=== PATIENT | male | born 1980 | race Caucasian/White ===

== ENCOUNTER 2017-01-29 15:00 | Emergency (ER) | payer SELFPAY ==
[2017-01-29 15:13] VITALS: BP 120/84
--- NOTE | 2017-01-29 15:22 | UC ---
Skin Complaint HPI - HPI Summary HPI Summary: The patient comes in today for: 1. Rash: Onset: "a couple days" Palliative/provocative: Nothing makes it better or worse except touching. Quality: Burning. Region: Bilateral arms and upper chest. Severity: 0/10 when not toughing. Time: Constant. Associated symptoms: Event: He used a weed richmond earlier the day he developed the rash. He knows that there are yuridia in the area where he was week wacking. He was wearing pants and a tank top shirt. He only has a rash over the anterior arms and upper chest. * - History of Current Complaint Chief Complaint: UCSkin Time Seen by Provider: 01/29/17 15:07 Stated Complaint: RASH ON ARM AND NECK Hx Obtained From: Patient - Allergy/Home Medications Allergies/Adverse Reactions: Allergies Allergy/AdvReac Type Severity Reaction Status Date / Time No Known Allergies Allergy Verified 01/29/17 15:13 Review of Systems Constitutional: Negative Skin: Rash Eyes: Negative ENT: Negative Respiratory: Negative Cardiovascular: Negative Gastrointestinal: Negative Genitourinary: Negative All Other Systems Reviewed And Are Negative: Yes PMH/Surg Hx/FS Hx/Imm Hx Previously Healthy: Yes - Surgical History Surgical History: Yes Surgery Procedure, Year, and Place: 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, 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 Negative: Discharge ENT: Positive: Hearing grossly normal. Negative: Pharyngeal erythema, Nasal congestion, Nasal drainage, TM bulging, TM dull, TM red, Tonsillar swelling, Tonsillar exudate Dental: Negative: Gross Decay/Caries @, Dental Fracture @ Neck: Positive: Supple, Nontender, No Lymphadenopathy. Negative: Nuchal Rigidity Respiratory: Positive: Lungs clear, No respiratory distress, No accessory muscle use. Negative: Rhonchi, Wheezing Cardiovascular: Positive: RRR, No Murmur Abdomen Description: Positive: Nontender, No Organomegaly, Soft. Negative: Distended, Guarding Musculoskeletal: Positive: Strength Intact, ROM Intact, No Edema Neurological: Positive: Alert, Muscle Tone Normal Psychological: Positive: Age Appropriate Behavior, Consolable Skin: Positive: rashes - There are polka dot/scattered pattern of erythematous slightly papular rash with lesions several mm in diameter up the anterior arms and upper chest in an area exposed with a tank top shirt. Nothing on the face or neck or stomach. Course/Dx - Course Course Of Treatment: Patient was told that I think he has a contact dermatitis related to irritating oils from plants (such as poison yari) which were cut and shredded by his weed richmond and splattered on him. - Differential Diagnoses - Skin Complaint Differential Diagnoses: Cellulitis, Contact Dermatitis, Poison Yari - Diagnoses Provider Diagnoses: Contact dermatitis Discharge - Discharge Plan Condition: Stable Disposition: HOME Patient Education Materials: Poison Yari (ED), Contact Dermatitis (ED) Referrals: YOVANY Gaytan [Primary Care Provider] - 1 Week (Please see your primary care provider in about one to two weeks to see how well you are doing. If you get worse, please be seen sooner.)
== END 2017-01-29 16:02 | disposition home or self-care (01) ==
LOC: UCCORT 15:00
DX: L25.9 Unspecified contact dermatitis, unspecified cause (principal); F17.210 Nicotine dependence, cigarettes, uncomplicated
CPT/HCPCS: 99212; G0463

== ENCOUNTER 2018-04-16 17:44 | Emergency (ER) | payer OTHER ==
[2018-04-16 18:03] VITALS: BP 120/82
--- NOTE | 2018-04-16 18:47 | UC ---
Back Pain HPI - HPI Summary HPI Summary: A 37 y/o male presents to [facility] c/o constant back pain around the hip and middle of back. According to the patient, he has been experiencing back pain for the past 3 days when he woke up with a sore back. Because of the pain, he is experiencing abdominal pain and nausea. Additionally he has left leg aching pain. Denies any numbness/weakness, urinary issues, hematuria or bowel issues, but he stated that he feels he got hit in his testicles. Denies any recent back injury. Movement and ambulating aggravates the symptoms. He has history of pulling muscles in his back. FHx of degenerative bone disease (father, diagnosed at his age). 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 SHx of a smoker, no recreation drugs or ETOH. No allergies. No medications. Pt is worried about his kidneys. - History of Current Complaint Chief Complaint: UCBackPain Stated Complaint: LOW BACK PAIN Time Seen by Provider: 04/16/18 18:18 Hx Obtained From: Patient Onset/Duration: Sudden Onset, Lasting Days, Still Present Timing: Constant Severity Initially: Moderate Severity Currently: Moderate Pain Intensity: 5 Pain Scale Used: 0-10 Numeric Back Pain: Is Discrete @ - Hip to middle of back, Radiates To - left leg Character: Aching Aggravating Factor(s): Movement, Bending, Walking Alleviating Factor(s): Nothing Associated Signs And Symptoms: Positive: Abdominal Pain. Negative: Weakness, Numbness - Allergies/Home Medications Allergies/Adverse Reactions: Allergies Allergy/AdvReac Type Severity Reaction Status Date / Time No Known Allergies Allergy Verified 04/16/18 18:03 PMH/Surg Hx/FS Hx/Imm Hx - Additional Past Medical History Additional PMH: Patient has no PMHx. - Surgical History Surgical History: Yes Surgery Procedure, Year, and Place: t/a, blood clot in brain as - Family History Known Family History: Positive: Cardiac Disease, Diabetes - Social History Alcohol Use: Rare Substance Use Type: None Smoking Status (MU): Heavy Every Day Tobacco Smoker Have You Smoked in the Last Year: Yes Review of Systems Constitutional: Negative Skin: Negative Eyes: Negative ENT: Negative Respiratory: Negative Cardiovascular: Negative Gastrointestinal: Abdominal Pain, Nausea Genitourinary: Negative Motor: Negative Neurovascular: Negative Musculoskeletal: Other: - POSITIVE: Back pain radiating to left leg Neurological: Negative Psychological: Negative Is Patient Immunocompromised?: No All Other Systems Reviewed And Are Negative: Yes Physical Exam - Summary Physical Exam Summary: Appearance: Well appearing, no pain distress Skin: warm, dry, reflects adequate perfusion Head/face: normal Eyes: EOMI, DARIEN ENT: normal Neck: supple, non-tender Respiratory: CTA, breath sounds present Cardiovascular: RRR, pulses symmetrical Abdomen: non-tender, soft Bowel Sounds: present Musculoskeletal: strength/ROM intact, no midline tenderness in the back, no CVA tenderness, mild left lumbar muscular tenderness Neuro: normal, sensory motor intact, A&Ox3 Triage Information Reviewed: Yes Vital Signs: Initial Vital Signs Temp 98.3 F 04/16/18 18:01 Pulse 72 04/16/18 18:01 Resp 18 04/16/18 18:01 BP 120/82 04/16/18 18:01 Pulse Ox 96 04/16/18 18:01 Vital Signs Reviewed: Yes Back Pain Course/Dx - Course Course Of Treatment: 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 Urine is negative for blood or infection. Range of motion is unlimited. No evidence for cauda equina or conus medullaris. Discharged on symptom control, stretching etc. Recommended chiropractic. - Differential Dx/Diagnosis Differential Diagnosis/HQI/PQRI: Renal Colic, Strain, Sprain, Other - UTI Provider Diagnoses: LEFT LUMBAR STRAIN Discharge - Sign-Out/Discharge Documenting (check all that apply): Patient Departure - DISCHARGE All imaging exams completed and their final reports reviewed: No Studies - Discharge Plan Condition: Improved Disposition: HOME Prescriptions: Cyclobenzaprine (NF) [Cyclobenzaprine 5 MG (NF)] 5 mg PO TID PRN #12 tab PRN Reason: muscle pain Naproxen [Naproxen 500 mg tab] 500 mg PO BID #12 tablet. Patient Education Materials: Low Back Strain (ED) Referrals: [facility] [Outside] [facility] [Outside] Additional Instructions: Ice, range of motion/stretching exercises and medications for discomfort. Do not work while taking muscle relaxant. Return with numbness/weakness, uncontrolled pain, new symptoms or other concerns. You have been given referral line for primary care doctor and also a clinic that can follow you up within the next 2 days if needed. - Billing Disposition and Condition Condition: IMPROVED Disposition: Home - Attestation Statements Document Initiated by Cj: Yes Documenting Scribe: Sylvester Conklin Provider For Whom Cj is Documenting (Include Credential): Tam Waddell MD Scribe Attestation: Sylvester Benito, scribed for Tam Waddell MD on 04/16/18 at 1951. Scribe Documentation Reviewed: Yes Provider Attestation: The documentation as recorded by the Sylvester salas accurately reflects the service I personally performed and the decisions made by , Tam Waddell MD
== END 2018-04-16 18:53 | disposition home or self-care (01) ==
LOC: UCEAST 17:44
DX: S39.012A Strain of muscle, fascia and tendon of lower back, initial encounter (principal); X58.XXXA Exposure to other specified factors, initial encounter; Y93.9 Activity, unspecified; Y92.9 Unspecified place or not applicable; R10.9 Unspecified abdominal pain; R11.0 Nausea; F17.200 Nicotine dependence, unspecified, uncomplicated
CPT/HCPCS: 81003; 99212; G0463

== ENCOUNTER → 2018-09-05 19:04 | Emergency (ER) | payer OTHER ==
[~2018-09-05 19:04] MED LIST: Iohexol 300* (CONTRAST) 10 ML SDV IV ONE; Ketorolac INJ* 30 MG/ML 1 ML VIAL IV PUSH ONE; NS 0.9% 1000 ML* 1,000 ML IV ONE
[2018-09-05 23:04] LABS: ABS Basophils 0.1 10^3/ul (0-0.2); ABS Eosinophils 0.2 10^3/ul (0-0.6); ABS Lymphocytes 2.3 10^3/ul (1.0-4.8); ABS Monocytes 0.8 10^3/ul (0-0.8); ABS Neutrophils 3.7 10^3/ul (1.5-7.7); ABS Nucleated RBC 0 10^3/ul; Eosinophil % 2.8 %; Hematocrit 47 % (42-52); Hemoglobin 16.1 g/dl (14.0-18.0); Lymphocyte % 32.1 %; Mean Corpuscular HGB Conc 34 g/dl (31-36); Mean Corpuscular Hemoglobin 31 pg (27-31); Mean Corpuscular Volume 90 fL (80-94); Nucleated Red Blood Cells % 0; Platelet Count 182 10^3/ul (150-450); Red Blood Count 5.26 10^6/ul (4.00-5.40); Red Cell Distribution Width 13 % (10.5-15); White Blood Count 7.1 10^3/ul (3.5-10.8)
[2018-09-05 23:21] LABS: Albumin 4.6 g/dL (3.2-5.2); BUN/Creatinine Ratio 21.9 (8-20); C Reactive Protein 2.21 mg/L (<8.01); Calcium 9.4 mg/dL (8.6-10.3); EGFR Non-African American 86.8 (>60); Globulin 2.3 g/dL (2-4); Potassium 3.8 mmol/L (3.5-5.0); Total Bilirubin 0.6 mg/dL (0.2-1.0); Total Protein 6.9 g/dL (6.4-8.9)
--- NOTE | 2018-09-06 01:01 | ED ---
GI/ HPI - HPI Summary HPI Summary: 38-year-old male presents with right lower quadrant pain today. She states that pain doesn't radiate anywhere. he has never had this before. Denies any nausea vomiting diarrhea or constipation. No fevers. He states he was wearing a tool belt when the pain started but it persisted even after he took the tool belt off. He states he's had no appetite. No urinary symptoms. No chest pain or shortness breath. No previous surgeries. 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 Negative: Vomiting, Diarrhea, Nausea All Other Systems Reviewed And Are Negative: Yes Physical Exam Triage Information Reviewed: Yes Vital Signs On Initial Exam: Initial Vitals Temp Pulse Resp BP Pulse Ox 99.1 F 79 16 159/93 96 09/05/18 19:22 09/05/18 19:22 09/05/18 19:22 09/05/18 19:22 09/05/18 19:22 Vital Signs Reviewed: Yes Appearance: Positive: Well-Appearing Skin: Positive: Warm, Dry Head/Face: Positive: Normal Head/Face Inspection Eyes: Positive: Normal, Conjunctiva Clear ENT: Positive: Pharynx normal Respiratory/Lung Sounds: Positive: Clear to Auscultation, Breath Sounds Present Cardiovascular: Positive: Normal, RRR Abdomen Description: Positive: Soft, Other: - tenderness RLQ, pos obturator Bowel Sounds: Positive: Present Musculoskeletal: Positive: Normal Neurological: Positive: Normal Psychiatric: Positive: Normal Diagnostics - Vital Signs Vital Signs Temp Pulse Resp BP Pulse Ox 09/06/18 00:30 70 132/89 95 09/06/18 00:21 68 96 09/06/18 00:00 73 131/87 95 09/05/18 23:30 72 140/94 97 09/05/18 23:00 75 95 09/05/18 22:30 70 147/87 96 09/05/18 19:22 99.1 F 79 16 159/93 96 - Laboratory Lab Results: Lab Results 09/05/18 09/05/18 09/05/18 Range/Units 22:52 22:52 22:52 WBC 7.1 (3.5-10.8) 10^3/ul RBC 5.26 (4.00-5.40) 10^6/ul Hgb 16.1 (14.0-18.0) g/dl Hct 47 (42-52) % MCV 90 (80-94) fL MCH 31 (27-31) pg MCHC 34 (31-36) g/dl RDW 13 (10.5-15) % Plt Count 182 (150-450) 10^3/ul MPV 7.0 L (7.4-10.4) fL Neut % (Auto) 52.9 % Lymph % (Auto) 32.1 % [place] % (Auto) 11.1 % Eos % (Auto) 2.8 % Baso % (Auto) 1.1 % Absolute Neuts (auto) 3.7 (1.5-7.7) 10^3/ul Absolute Lymphs (auto) 2.3 (1.0-4.8) 10^3/ul Absolute Monos (auto) 0.8 (0-0.8) 10^3/ul Absolute Eos (auto) 0.2 (0-0.6) 10^3/ul Absolute Basos (auto) 0.1 (0-0.2) 10^3/ul Absolute Nucleated RBC 0 10^3/ul Nucleated RBC % 0 Sodium 138 (135-145) mmol/L Potassium 3.8 (3.5-5.0) mmol/L Chloride 104 (101-111) mmol/L Carbon Dioxide 28 (22-32) mmol/L Anion Gap 6 (2-11) mmol/L BUN 21 (6-24) mg/dL Creatinine 0.96 (0.67-1.17) mg/dL Est GFR ( Amer) 105.0 (>60) Est GFR (Non-Af Amer) 86.8 (>60) BUN/Creatinine Ratio 21.9 H (8-20) Glucose 98 (70-100) mg/dL Lactic Acid 0.8 (0.5-2.0) mmol/L Calcium 9.4 (8.6-10.3) mg/dL Total Bilirubin 0.60 (0.2-1.0) mg/dL AST 20 (13-39) U/L ALT 26 (7-52) U/L Alkaline Phosphatase 67 (34-104) U/L C-Reactive Protein 2.21 (<8.01) mg/L Total Protein 6.9 (6.4-8.9) g/dL Albumin 4.6 (3.2-5.2) g/dL Globulin 2.3 (2-4) g/dL Albumin/Globulin Ratio 2.0 (1-3) Lipase 18 (11.0-82.0) U/L Result Diagrams: 09/05/18 22:52 09/05/18 22:52 Lab Statement: Any lab studies that have been ordered have been reviewed, and results considered in the medical decision making process. - CT abd CT Interpretation Completed By: Radiologist Summary of CT Findings: 1. 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 2. Otherwise negative CT abdomen/pelvis. A normal appendix is seen. No renal or. ureteral calculi are evident and there is no evidence of obstructive uropathy. Re-Evaluation - Re-Evaluation First Eval Re-Evaluation Time: 00:05 Change: Improved Comment: feeling better. discussed labs GIGU Course/Dx - Course Course Of Treatment: 38-year-old male presents with right lower quadrant pain today. She states that pain doesn't radiate anywhere. he has never had this before. Denies any nausea vomiting diarrhea or constipation. No fevers. He states he was wearing a tool belt when the pain started but it persisted even after he took the tool belt off. He states he's had no appetite. No urinary symptoms. No chest pain or shortness breath. No previous surgeries. On exam tenderness right lower quadrant and positive oburator. White blood cell count normal. CRP normal. CT shows no acute findings. discussed results with patient. patient understand and agrees with plan. - Diagnoses Differential Diagnoses - Male: Appendicitis, Incarcerated Hernia, Urinary Tract Infection Provider Diagnoses: Abdominal pain Discharge - Sign-Out/Discharge Documenting (check all that apply): Patient Departure - Discharge Plan Condition: Good Disposition: HOME Patient Education Materials: Acute Abdominal Pain (ED) Referrals: No Primary Care Phys,NOPCP [Primary Care Provider] - Additional Instructions: Your pain is not caused by any surgical emergency Drink small amounts of fluid as tolerated When able to eat follow BRAT diet: Bananas, rice, applesauce, toast Take ibuprofen or Tylenol for pain as needed every 6 hours Follow up with primary within 5 days Return to ED if develop any new or worsening symptoms - Billing Disposition and Condition Condition: GOOD Disposition: Home
[2018-09-06 01:50] VITALS: BP 127/89
== END | disposition home or self-care (01) ==
LOC: ED 19:04
DX: R10.31 Right lower quadrant pain (principal); F17.200 Nicotine dependence, unspecified, uncomplicated
CPT/HCPCS: 36415; 74177; 80053; 83605; 83690; 85025; 86140; 96374; 99282; J1885; Q9967

== ENCOUNTER 2019-05-28 15:58 | Emergency (ER) | payer OTHER ==
[2019-05-28 16:11] VITALS: BP 137/77
--- NOTE | 2019-05-28 16:29 | UC ---
Lower Extremity/Ankle HPI - HPI Summary HPI Summary: 38 yo with 6 month history of progressive pain in the left lateral ankle, with radiation to the lateral border of the left foot. Initially had pain only with walking, now has pain at rest. No analgesics used, and has not used ice. 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 - History of Current Complaint Chief Complaint: UCLowerExtremity Stated Complaint: L ANKLE PAIN Time Seen by Provider: 05/28/19 16:20 Hx Obtained From: Patient Onset/Duration: Gradual Onset, Lasting Weeks - about 6 months, Worse Since - over past week, has pain at rest and with walking. 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 - Family History Known Family History: Positive: Cardiac Disease, Diabetes, Other - mother has rheumatoid arthritis - Social History Occupation: Employed Full-time Lives: With Family Alcohol Use: Rare Substance Use Type: None Smoking Status (MU): Heavy Every Day Tobacco Smoker Amount Used/How Often: 1 PPD Have You Smoked in the Last Year: Yes Household Exposure Type: Cigarettes Review of Systems All Other Systems Reviewed And Are Negative: Yes Constitutional: Positive: Negative Skin: Positive: Negative Eyes: Positive: Negative ENT: Positive: Negative Respiratory: Positive: Negative Cardiovascular: Positive: Negative Gastrointestinal: Positive: Negative Genitourinary: Positive: Negative Musculoskeletal: Positive: Arthralgia Neurological: Positive: Negative Psychological: Positive: Negative Is Patient Immunocompromised?: No Physical Exam Triage Information Reviewed: Yes Appearance: Well-Appearing, Pain Distress - mild Vital Signs: Initial Vital Signs Temp 99.2 F 05/28/19 16:09 Pulse 94 05/28/19 16:09 Resp 16 05/28/19 16:09 BP 137/77 05/28/19 16:09 Pulse Ox 97 05/28/19 16:09 Eye Exam: Normal Neck exam: Normal Respiratory Exam: Normal Respiratory: Positive: Lungs clear, Normal breath sounds, No respiratory distress Cardiovascular: Positive: RRR, No Murmur Musculoskeletal Exam: Other - mild to moderate swelling of the left lateral malleolus without warmth or erythema. Tender to touch distal lateral malleolus. Tenderness posterior talo-fibular ligament. ROM in ankle is full, with pain with both plantar and dorsiflexion. Musculoskeletal: Positive: Strength Intact, ROM Intact - Full rm, pain reporduces with resisted eversion of the foot, No Edema, Other: - foot warm and well perfused. Neurological Exam: Normal Psychological Exam: Normal Skin Exam: Normal Diagnostics - Radiology No standard instances Radiology Interpretation Completed By: Radiologist - No acute osseous injury per Dr. Bravo. Lower Extremity Course/Dx - Course Course Of Treatment: Suspect peroneal tendonopathy. Begin naproxen, refer PT, refer Sports med for evaluation. - Differential Dx/Diagnosis Differential Diagnosis/HQI/PQRI: Arthritis, Fracture (Closed), Sprain, Strain, Tendonitis Provider Diagnosis: Tendonitis of ankle, left Discharge ED - Sign-Out/Discharge Documenting (check all that apply): Patient Departure All imaging exams completed and their final reports reviewed: Yes - Discharge Plan Condition: Good Disposition: HOME Prescriptions: Naproxen [Naproxen 500 mg tab] 500 mg PO BID #40 tablet Patient Education Materials: Tendinitis (ED) Referrals: No Primary Care Phys,NOPCP [Primary Care Provider] - Sachin Barnett MD [Medical Doctor] - Additional Instructions: The pain and swelling in your ankle are most likely related to a tendon inflammation. Treatment for this includes anti-inflammatories: take naproxen 500mg twice daily with food. STOP if you develop stomach upset or nausea or heartburn. You have referral for physical therapy and to sports medicine for evaluation and treatment. - Billing Disposition and Condition Condition: GOOD Disposition: Home
== END 2019-05-28 17:12 | disposition home or self-care (01) ==
LOC: UCEAST 15:58
DX: M77.52 Other enthesopathy of left foot and ankle (principal); F17.210 Nicotine dependence, cigarettes, uncomplicated
CPT/HCPCS: 99212; G0463